=== PATIENT | male | born 1975 | race Caucasian/White ===

== ENCOUNTER 2019-08-10 21:14 | Emergency (ER) | payer BC, SELFPAY ==
[2019-08-10 21:29] VITALS: BP 143/85; PULSE 76; RESP 12; TEMP 36.4; O2SAT 97
[2019-08-10] MEDS: ONDANSETRON HCL ODT 4 MG TABLET PO ×2 (22:01→23:12)
[2019-08-10] MEDS: MECLIZINE HCL 25 MG TABLET PO ×2 (22:01→23:12)
--- NOTE | 2019-08-10 22:52 | ED.DIZZY ---
HPI - Dizziness General Chief Complaint: Dizziness Stated Complaint: dizzy weak Source: patient Mode of arrival: ambulatory Limitations: no limitations History of Present Illness HPI Narrative: This 44 y.o. male stood up from the bend over position at 4 PM today and experienced spinning which lasted a few seconds. Since then he just hasn't felt right, like he's :floating in space and feeling weak all over . When he rapidly turns his head he becomes very nauseated and ;has brief spinning. Fluorescent light seems brighter today. He has no headache. Laying still and not moving his head reduces his symptoms. He had problems with attacks of vertigo around 4-5 years ago which stopped when he stopped smoking cigars. He has had tinnitus for years which has not recently worsened. He denies loss of hearing. Recently he began having sneezing which is typical for this time of the year and is relieved with Zyrtec. He had diarrhea once today. Related Data Allergies Allergy/AdvReac Type Severity Reaction Status Date / Time No Known Allergies Allergy Unknown Unverified 06/02/16 18:10 Review of Systems Eyes: Eyes: Denies change in vision ENT: Denies sore throat Cardiovascular: Cardiovascular: Denies chest pain Respiratory: Respiratory: Denies cough Comments: He has a little trouble with chest tightness when he has sneezing and nasal congestion which resolves with Zyrtec. NO SOB or wheezing. Gastrointestinal: Gastrointestinal: Denies abdominal pain Musculoskeletal: Musculoskeletal: Reports no additional musculoskeletal complaints Integumentary/Breasts: Skin/Breast: Denies rash Neurologic: Denies focal weakness Allergic/Immunologic: Allergic/Immunologic: Reports no additional allergic/immunologic complaints [facility] Surgical History Surgical History (Updated 08/11/19 @ 16:13 by Jacoby Jeffery MD) History of appendectomy Social History Social History (Updated 08/11/19 @ 16:15 by Jacoby Jeffery MD) Smoking status: Former smoker Alcohol intake: former Alcohol use details: Drinks an occasional beer , about 24/week Substance use: current Exam Narrative: Exam Narrative: Sitting up on the cart, holding his body and head still, slowly moving. Const: General: alert; No diaphoretic Orientation/consciousness: patient oriented x3 HENMT: Ears: TM's normal bilaterally and EAC's normal General nose exam: no nasal discharge noted Face and sinus: normal facial exam and sinuses nontender Mouth: Yes Normal oral and palatal mucosa present Other: hears finger rub and whispered voice equally well in both sides. [place]-Hallpike maneuver on first testing caused rotational vertigo as soon as Ryan was supine, whether neck extended with head rotated to the right or left. Rotational nystagmus was subtle, appearing to rotate upwards towards the scalp on the right. On repeat testing the same rotational nystagmus occured only when the head was turned with left ear down. Nystagmus always resolved after about 15 seconds. Pt experienced vertigo while laying supine or sitting up. When supine, rotating head to right caused no symptoms, but returning to neutral caused vertigo and vomiting. Rotation to the left had less dramatic vertigo. Eyes: Conjunctivae: conjunctivae normal Pupils: Equal, round and reactive pupils present EOM: EOMs intact bilaterally Direct Ophthalmoscopy: no photophobia Neck: Neck: no lymphadenopathy and no meningeal signs Chest: Chest palpation & inspection: normal inspection of the chest Resp: Auscultation: clear to auscultation bilaterally Cardio: Rate: regular rate Rhythm: regular rhythm GI: Other: soft and nontender : General: Yes no CVA tenderness Back/Spine/Pelvis: Back: no CVA tenderness Skin: General skin exam: normal color Rashes: no rashes Neuro: General: moves all extremities, no focal motor deficits and CN's II-XI intact bilaterally Speech: normal speech Gait exam (Neuro): Normal gait
[2019-08-10 23:13] VITALS: BP 148/61; RESP 15; O2SAT 98
== END 2019-08-10 23:13 | disposition home or self-care (01) ==
PROVIDERS: Emergency Provider Family Medicine; PCP Internal Medicine
DX: H81.10 Benign paroxysmal vertigo, unspecified ear (principal)
CPT/HCPCS: 99283; A9270

== ENCOUNTER 2023-04-25 00:39 | Day surgery (SDC) | payer BC, SELFPAY ==
[2023-04-09 11:00] VITALS: BMI 32.1
--- NOTE | 2023-04-23 09:40 | SUR.PREOP ---
Patient called regarding upcoming procedure. Reviewed preop instructions, appointment times, and procedure prep.
--- NOTE | 2023-04-24 11:31 | SUR.PREOP ---
patient called to move him to the 730 procedure start time due to some staffing availability. Patient arriving at 6 am on .
[2023-04-25 06:22] VITALS: BP 145/88; PULSE 84; RESP 18; TEMP 36.3; O2SAT 100; BMI 31.3
[2023-04-25] MEDS: LACTATED RINGERS 1,000 ML 150 ML IV CONT (06:25)
--- NOTE | 2023-04-25 07:22 | P.PNAN_ITS ---
Anes - Initial Pre Proc Eval Procedure: Operation Date: 04/25/23 07:30 Proposed Procedures p Colonoscopy - Gregory Millan DO Date/Time: 04/25/23 07:22 Surgeon: Gregory Millan DO Pre Op Diagnosis: Iron Deficiency Anemia Patient Data Age: 48 Gender: M Height: 1.83 m Weight: 104.7 kg Last Vital Signs Temp 97.3 F L 04/25/23 06:22 Pulse 84 04/25/23 06:22 Resp 18 04/25/23 06:22 BP 145/88 H 04/25/23 06:22 Pulse Ox 100 04/25/23 06:22 O2 Del Method Room Air 04/25/23 06:22 Allergies Allergy/AdvReac Type Severity Reaction Status Date / Time No Known Allergies Allergy Unknown Verified 04/25/23 06:20 Home Medications Medication Instructions Recorded Confirmed Type montelukast 10 mg tablet 10 mg PO DAILY 04/09/23 04/25/23 History Patient hx anesthesia problems: none Family hx anesthesia problems: none Results Review: All pre-operative results and documents have been reviewed as part of the pre-operative evaluation. [facility] Surgical History Surgical History (Updated 08/11/19 @ 16:13 by Jacoby JefferyMD) History of appendectomy Social History Social History Smoking status: Former smoker Alcohol intake: former Alcohol use details: Drinks an occasional beer , about 24/week Substance use: current Substance use type: marijuana Anes - Eval Final PreProcedure Day of Procedure 04/25/23 07:22 Patient weight: obese Heart: regular rate and rhythm Lungs: clear to auscultation Airway: Mallampati scale class II Neurological: alert and oriented Last oral intake: >/= 8 hours ASA classification: II Emergent: no Anesthetic plan: proceed Anesthesia type and monitoring: general GIVS and standard monitoring Results Review: All pre-operative results and documents have been reviewed as part of the pre- operative evaluation. Informed Consent: The patient's anesthetic plan and its attendant risks and benefits were discussed with the patient/family/POA. Questions were solicited and answers provided to the satisfaction of the patient/family/POA.
--- NOTE | 2023-04-25 07:27 | PM.IMHP ---
H&P: HPI History of Present Illness Date/Time: 04/25/23 07:27 Chief Complaint: anemia Narrative: 48 yo man presents for colonoscopy. He has had low iron the last couple visits with his PCP. He hasn't had any major dietary changes other than intermittent fasting. Denies hematochezia or melena. No fam hx colon cancer. Denies abdominal pain. Review of Systems Review of Systems: All systems reviewed & are unremarkable except as noted in HPI and below Constitutional: Constitutional: Denies chills, Denies fever(s), Denies headache(s) and Denies weight loss Eyes: Eyes: Denies change in vision ENT: Denies dizziness, Denies headache(s), Denies neck mass and Denies throat swelling Cardiovascular: Cardiovascular: Denies chest pain, Denies lightheadedness and Denies dyspnea Respiratory: Respiratory: Denies cough, Denies dyspnea and Denies wheezing Gastrointestinal: Gastrointestinal: Denies abdominal pain, Denies change in bowel habits, Denies nausea and Denies vomiting Genitourinary: Genitourinary: Denies hematuria and Denies dysuria Musculoskeletal: Musculoskeletal: Reports as per HPI Integumentary/Breasts: Skin/Breast: Reports as per HPI Neurologic: Denies dizziness and Denies headache(s) Allergic/Immunologic: Allergic/Immunologic: Denies throat swelling and Denies wheezing PMFSH Surgical History Surgical History (Updated 08/11/19 @ 16:13 by Jacoby Jeffery, ) History of appendectomy Social History Social History Smoking status: Former smoker Alcohol intake: former Alcohol use details: Drinks an occasional beer , about 24/week Substance use: current Substance use type: marijuana Meds Home Medications and Allergies Home Medications Medication Instructions Recorded Confirmed Type montelukast 10 mg tablet 10 mg PO DAILY 04/09/23 04/25/23 History Allergies Allergy/AdvReac Type Severity Reaction Status Date / Time No Known Allergies Allergy Unknown Verified 04/25/23 06:20 Vital Signs Vital Signs - 24 hr 04/25/23 06:22 Temperature 36.3 C L Pulse Rate 84 Respiratory Rate 18 Blood Pressure 145/88 H Pulse Oximetry 100 Oxygen Delivery Room Air Exam Const: General: no acute distress and alert Orientation/consciousness: patient oriented x3 HENMT: Head: normocephalic and atraumatic Ears: hearing grossly normal bilaterally Face/Nose/Sinus: Normal nares present Mouth: Yes Normal oral and palatal mucosa present Eyes: Periorbital: periorbital findings normal Sclera: sclerae normal EOM: EOMs intact bilaterally Neck: Neck: normal visual inspection, no lymphadenopathy and trachea midline Chest: Chest palpation & inspection: normal inspection of the chest Resp: Effort & Inspection: normal respiratory effort Auscultation: clear to auscultation bilaterally Cardio: Jugular venous distension: no JVD Rate: regular rate Rhythm: regular rhythm Heart sounds: S1 normal heart sound present and S2 normal heart sound present Peripheral pulses: Peripheral pulses 2+ throughout GI: Inspection: normal to inspection GI Palp: Yes Soft to palpation, No Tenderness to palpation present (GI), No Guarding due to palpation present (GI) and No Rebound tenderness present Percussion: Yes normal to percussion Auscultation: normal bowel sounds : General: Yes no CVA tenderness Back/Spine/Pelvis: Back: no CVA tenderness Neuro: General: patient oriented x3, no focal motor deficits and CN's II-XI intact bilaterally Cognition (Neuro): normal cognition Speech: normal speech Motor exam (neuro): 5/5 motor strength present throughout Extrem: General: capillary refill normal and no clubbing, cyanosis or edema Assessment and Plan Assessment and plan (1) Iron deficiency anemia: Code(s): D50.9 - Iron deficiency anemia, unspecified Status: Acute Assessment and Plan: I have recommended colonoscopy. I have discussed the
[2023-04-25 07:54] VITALS: BP 98/69; PULSE 66; RESP 14; O2SAT 96
[2023-04-25 08:04] VITALS: BP 117/78; PULSE 64; RESP 18; O2SAT 100
[2023-04-25 08:14] VITALS: BP 131/80; PULSE 64; RESP 22; O2SAT 100
== END 2023-04-25 08:30 | disposition home or self-care (01) ==
PROVIDERS: PCP Internal Medicine; Visit Provider Surgery
PROC: 0DJD8ZZ Inspection of Lower Intestinal Tract, Via Natural or Artificial Opening Endoscopic (ICD-10-PCS; CPT 45378; principal; 2023-04-25 07:30)
DX: D50.9 Iron deficiency anemia, unspecified (principal); K63.5 Polyp of colon; K57.30 Diverticulosis of large intestine without perforation or abscess without bleeding; Z87.891 Personal history of nicotine dependence; E66.9 Obesity, unspecified; Z68.31 Body mass index [BMI] 31.0-31.9, adult
CPT/HCPCS: 45380; 88305; J2001; J2704; J7120

== ENCOUNTER 2023-05-09 00:38 | Day surgery (SDC) | payer BC, SELFPAY ==
[2023-05-02 13:16] VITALS: BMI 31.2
--- NOTE | 2023-05-07 09:06 | SUR.PREOP ---
Patient called regarding upcoming procedure. Voicemail left regarding appointment times.
[2023-05-09 06:24] VITALS: BP 115/92; PULSE 66; RESP 18; TEMP 36.1; O2SAT 100
[2023-05-09] MEDS: LACTATED RINGERS 1,000 ML 150 ML IV CONT (06:35)
--- NOTE | 2023-05-09 07:23 | WPDANESEPPF ---
Anes - Initial Pre Proc Eval Procedure: Operation Date: 05/09/23 07:30 Proposed Procedures p Esophagogastroduodenoscopy - Gregory Millan DO Date/Time: 05/09/23 07:23 Surgeon: Gregory Millan DO Pre Op Diagnosis: Iron Deficiency Anemia Patient Data Age: 48 Gender: M Height: 1.83 m Weight: 104 kg Last Vital Signs Temp 97 F L 05/09/23 06:24 Pulse 66 05/09/23 06:24 Resp 18 05/09/23 06:24 BP 115/92 H 05/09/23 06:24 Pulse Ox 100 05/09/23 06:24 O2 Del Method Room Air 05/09/23 06:24 Allergies Allergy/AdvReac Type Severity Reaction Status Date / Time No Known Allergies Allergy Unknown Verified 05/09/23 06:23 Home Medications Medication Instructions Recorded Confirmed Type montelukast 10 mg tablet 10 mg PO DAILY 04/09/23 05/02/23 History Patient hx anesthesia problems: none Family hx anesthesia problems: none Results Review: All pre-operative results and documents have been reviewed as part of the pre-operative evaluation. [facility] Surgical History Surgical History (Updated 08/11/19 @ 16:13 by Jacoby JefferyMD) History of appendectomy Social History Social History Smoking status: Never smoker Alcohol intake: current Drinks per week: 12 Alcohol use details: Drinks an occasional beer , about 24/week Substance use: current Substance use type: marijuana Other substance usage details: once a week Living arrangements: with family Spiritual care concerns: No Anes - Eval Final PreProcedure Day of Procedure 05/09/23 07:23 Patient weight: obese Heart: regular rate and rhythm Lungs: clear to auscultation Airway: Mallampati scale class II Neurological: alert and oriented Last oral intake: >/= 8 hours ASA classification: II Emergent: no Anesthetic plan: proceed Anesthesia type and monitoring: general GIVS and standard monitoring Results Review: All pre-operative results and documents have been reviewed as part of the pre-operative evaluation. Informed Consent: The patient's anesthetic plan and its attendant risks and benefits were discussed with the patient/family/POA. Questions were solicited and answers provided to the satisfaction of the patient/family/POA.
--- NOTE | 2023-05-09 07:33 | PM.IMHP ---
H&P: HPI History of Present Illness Date/Time: 05/09/23 07:33 Chief Complaint: Anemia Narrative: 48 yo man presents for EGD. Has anemia but no acid reflux, heartburn, or epigastric pain. Had colonoscopy 2 weeks ago that showed no bleeding source. Review of Systems Review of Systems: All systems reviewed & are unremarkable except as noted in HPI and below Constitutional: Constitutional: Denies chills, Denies fever(s), Denies headache(s) and Denies weight loss Eyes: Eyes: Denies change in vision ENT: Denies dizziness, Denies headache(s), Denies neck mass and Denies throat swelling Cardiovascular: Cardiovascular: Denies chest pain, Denies lightheadedness and Denies dyspnea Respiratory: Respiratory: Denies cough, Denies dyspnea and Denies wheezing Gastrointestinal: Gastrointestinal: Denies abdominal pain, Denies change in bowel habits, Denies nausea and Denies vomiting Genitourinary: Genitourinary: Denies hematuria and Denies dysuria Musculoskeletal: Musculoskeletal: Reports as per HPI Integumentary/Breasts: Skin/Breast: Reports as per HPI Neurologic: Denies dizziness and Denies headache(s) Allergic/Immunologic: Allergic/Immunologic: Denies throat swelling and Denies wheezing PMFSH Surgical History Surgical History (Updated 08/11/19 @ 16:13 by Jacoby Jeffery, ) History of appendectomy Social History Social History Smoking status: Never smoker Alcohol intake: current Drinks per week: 12 Alcohol use details: Drinks an occasional beer , about 24/week Substance use: current Substance use type: marijuana Other substance usage details: once a week Living arrangements: with family Spiritual care concerns: No Meds Home Medications and Allergies Home Medications Medication Instructions Recorded Confirmed Type montelukast 10 mg tablet 10 mg PO DAILY 04/09/23 05/02/23 History Allergies Allergy/AdvReac Type Severity Reaction Status Date / Time No Known Allergies Allergy Unknown Verified 05/09/23 06:23 Vital Signs Vital Signs - 24 hr 05/09/23 06:24 Temperature 36.1 C L Pulse Rate 66 Respiratory Rate 18 Blood Pressure 115/92 H Pulse Oximetry 100 Oxygen Delivery Room Air Exam Const: General: no acute distress and alert Orientation/consciousness: patient oriented x3 HENMT: Head: normocephalic and atraumatic Ears: hearing grossly normal bilaterally Face/Nose/Sinus: Normal nares present Mouth: Yes Normal oral and palatal mucosa present Eyes: Periorbital: periorbital findings normal Sclera: sclerae normal EOM: EOMs intact bilaterally Neck: Neck: normal visual inspection, no lymphadenopathy and trachea midline Chest: Chest palpation & inspection: normal inspection of the chest Resp: Effort & Inspection: normal respiratory effort Auscultation: clear to auscultation bilaterally Cardio: Jugular venous distension: no JVD Rate: regular rate Rhythm: regular rhythm Heart sounds: S1 normal heart sound present and S2 normal heart sound present Peripheral pulses: Peripheral pulses 2+ throughout GI: Inspection: normal to inspection GI Palp: Yes Soft to palpation, No Tenderness to palpation present (GI), No Guarding due to palpation present (GI) and No Rebound tenderness present Percussion: Yes normal to percussion Auscultation: normal bowel sounds : General: Yes no CVA tenderness Back/Spine/Pelvis: Back: no CVA tenderness Neuro: General: patient oriented x3, no focal motor deficits and CN's II-XI intact bilaterally Cognition (Neuro): normal cognition Speech: normal speech Motor exam (neuro): 5/5 motor strength present throughout Extrem: General: capillary refill normal and no clubbing, cyanosis or edema Assessment and Plan Assessment and plan (1) Iron deficiency anemia: Code(s): D50.9 - Iron deficiency anemia, unspecified Status: Acute Assessment and Plan: I have recomm
[2023-05-09 07:51] VITALS: BP 111/74; PULSE 65; RESP 16; O2SAT 100
[2023-05-09 08:01] VITALS: BP 125/86; PULSE 62; RESP 19; O2SAT 100
[2023-05-09 08:11] VITALS: BP 130/97; PULSE 56; RESP 15; O2SAT 100
== END 2023-05-09 08:19 | disposition home or self-care (01) ==
PROVIDERS: PCP Internal Medicine; Visit Provider Surgery
PROC: 0DJ08ZZ Inspection of Upper Intestinal Tract, Via Natural or Artificial Opening Endoscopic (ICD-10-PCS; CPT 43235; principal; 2023-05-09 07:30)
DX: D50.9 Iron deficiency anemia, unspecified (principal)
CPT/HCPCS: 43239; 87081; 88305; J2704; J7120

== ENCOUNTER 2023-06-19 14:31 | Outpatient (CLI) | payer BC, SELFPAY | END 2023-06-19 14:32 | disposition home or self-care (01) | LOC: ANHBWCAUD 14:32 | PROVIDERS: PCP Internal Medicine; Visit Provider Otolaryngology | DX: H90.3 Sensorineural hearing loss, bilateral (principal); H93.13 Tinnitus, bilateral; J30.2 Other seasonal allergic rhinitis | CPT/HCPCS: 92557; 92567 ==

== ENCOUNTER 2023-07-17 14:29 | Outpatient (RCR) | payer BC, SELFPAY | END 2023-10-15 23:59 | disposition home or self-care (01) | LOC: ANHBWCAUD 14:29 | PROVIDERS: PCP Internal Medicine; Visit Provider Internal Medicine | DX: Z46.1 Encounter for fitting and adjustment of hearing aid (principal) | CPT/HCPCS: V5261 ==